=== PATIENT | female | born 1980 | race Caucasian/White ===

== ENCOUNTER 2016-12-27 03:00 | Emergency (ER) | payer MEDICAID ==
[~2016-12-27] VITALS: Ht 167.6 cm; Wt 82.6 kg
--- NOTE | 2016-12-27 03:08 | NUR ---
PT TAKEN TO BED 7
[2016-12-27 03:09] VITALS: BP 187/109
--- NOTE | 2016-12-27 03:18 | NUR ---
PATIENT PRESENTS TO ED WITH HEADACHE S/P DX WITH HBP 06/24 NO MEDS GIVEN SKIN IS PINK/WARM/DRY; AAOX4 WITH EVEN AND STEADY GAIT; LUNGS CLEAR BL; HR EVEN AND REGULAR; PT DENIES ANY FEVER, CP, SOB, OR COUGH AT THIS TIME; PATIENT STATES PAIN OF 5/10 AT THIS TIME; VSS; PATIENT POSITIONED FOR COMFORT; HOB ELEVATED; BEDRAILS UP X2; BED DOWN. ER MD MADE AWARE OF PT STATUS.
--- NOTE | 2016-12-27 03:19 | NUR ---
Dr. Hyatt evaluating patient at bedside.
[2016-12-27] MEDS ORDERED: ONDANSETRON 4 MG ODT PO ONE (03:25)
[2016-12-27] MEDS ORDERED: MORPHINE SULFATE 4 MG/ML SYR IM ONE (03:25)
--- NOTE | 2016-12-27 03:32 | NUR ---
PT TAKEN TO CT
[2016-12-27 03:36] LABS: APPEARANCE,URINE CLEAR (CLEAR); BILIRUBIN,URINE NEGATIVE (NEGATIVE); BLOOD, URINE NEGATIVE (NEGATIVE); COLOR,URINE YELLOW (YELLOW); LEUKOCYTE ESTERASE ,URINE NEGATIVE (NEGATIVE); NITRITE, URINE NEGATIVE (NEGATIVE); UGLUCOSE NEGATIVE (NEGATIVE)
[2016-12-27 03:45] LABS: ANION GAP 12.2 (8-16); CARBON DIOXIDE 27.3 mmol/L (21-32); CREATININE 0.6 mg/dL (0.6-1.3); POTASSIUM 3.5 mmol/L (3.5-5.1)
[2016-12-27 03:47] LABS: RBC,URINE 0-5 (RARE) /HPF (0-5); WBC,URINE 0-5 (RARE) /HPF (0-5)
[2016-12-27] MEDS ORDERED: HYDROmorphone 1 MG/ML AMP IM ONE (04:35)
--- NOTE | 2016-12-27 04:57 | NUR ---
Patient discharged with v/s stable. Written and verbal after care instructions given and explained. Patient alert, oriented and verbalized understanding of instructions. Ambulatory with steady gait. All questions addressed prior to discharge. ID band removed. Patient advised to follow up with PMD. Rx of HCTZ 12.5MG AND TYLENOL 500MG given. Patient educated on indication of medication including possible reaction and side effects. Opportunity to ask questions provided and answered. PT STATES SHE WILL WAIT IN LOBBY FOR RIDE TO PICK HER UP.
[2016-12-27 04:58] VITALS: BP 157/94
== END 2016-12-27 04:57 | disposition home or self-care (01) ==
LOC: MED 03:00
DX: I10 Essential (primary) hypertension (principal); R51 Headache
CPT/HCPCS: 36415; 70450; 80048; 81001; 81025; 84484; 96372; 99285; J1170; J2270; S0119